=== PATIENT | female | born 1990 | race Two or more races ===

== ENCOUNTER 2019-04-29 21:08 | Emergency (ER) | payer MEDICAID, OTHER ==
[~2019-04-29] VITALS: Ht 162.6 cm; Wt 56.7 kg
[2019-04-29] MEDS ORDERED: GUAIFENESIN/CODEINE 5 ML LIQUID UDC PO ONE (21:45)
[2019-04-29] MEDS ORDERED: predniSONE 50 MG TABLET PO ONE (21:45)
[2019-04-29] MEDS ORDERED: GUAIFENESIN/CODEINE 5 ML LIQUID UDC ONE (21:47)
[2019-04-29] MEDS ORDERED: predniSONE 50 MG TABLET ONE (21:48)
--- NOTE | 2019-04-29 21:52 | NUR ---
PT ABLE TO TOLERATE PO MEDS ORDERED Patient discharged to home in stable conditon. Written and verbal after care instructions given. Patient verbalizes understanding of instructions. AMBULATORY W/ STABLE GAIT ALL BELONGINGS W/ PT
[2019-04-29 21:59] VITALS: BP 106/79
== END 2019-04-29 21:59 | disposition home or self-care (01) ==
LOC: ER 21:11
DX: J20.9 Acute bronchitis, unspecified (principal); F17.290 Nicotine dependence, other tobacco product, uncomplicated; Z71.6 Tobacco abuse counseling
CPT/HCPCS: 71045; 87400; 99284; 99406; J7512; A4663

== ENCOUNTER 2021-11-15 21:44 | Emergency (ER) | payer BC, OTHER ==
[~2021-11-15] VITALS: Ht 162.6 cm; Wt 63.5 kg
[2021-11-15] MEDS ORDERED: IV NS 1000 ML 1,000 ML IV ONE (22:00)
[2021-11-15] MEDS ORDERED: PROCHLORPERAZINE EDISYLATE 10 MG/2 ML VIAL IV ONE (22:00)
[2021-11-15] MEDS ORDERED: IV NORMAL SALINE 1000 ML BAG IV ONE (22:00)
[2021-11-15] MEDS ORDERED: PROCHLORPERAZINE EDISYLATE 10 MG/2 ML VIAL ONE (22:12)
[2021-11-15 22:13] LABS: HEMATOCRIT 39.3 % (31.2-41.9); MEAN CORPUSCULAR HEMOGLOBIN 31.3 uug (24.7-32.8); MEAN CORPUSCULAR VOLUME 88.6 fL (75.5-95.3); PLATELET COUNT (AUTO) 246 K/uL (179-408)
[2021-11-15 22:21] LABS: CREATININE 0.9 mg/dL (0.6-1.3); POTASSIUM 3.6 mmol/L (3.5-5.1)
[2021-11-15 22:36] LABS: BILIRUBIN,DIRECT 0.2 mg/dL (0.0-0.2); BILIRUBIN,TOTAL 0.7 mg/dL (0.2-1.0)
[2021-11-15 22:56] LABS: *BILIRUBIN,URIN NEGATIVE (NEGATIVE); *BLOOD, URINE NEGATIVE (NEGATIVE); *CLARITY,URINE CLEAR (CLEAR); *COLOR,URINE YELLOW (YELLOW); *KETONES,URINE 2+ (NEGATIVE); *UROBILINOGEN,URINE 0.2 E.U./dl (NORMAL); LEUKOCYTE ESTERASE ,URINE NEGATIVE (NEGATIVE); NITRITE, URINE NEGATIVE (NEGATIVE); PH,URINE 7.5 (5.0-8.0); UGLUCOSE NEGATIVE (NEGATIVE)
--- NOTE | 2021-11-15 23:28 | NUR ---
Patient states "I feel alot better now."
[2021-11-15] MEDS ORDERED: PROC10TA29 PO (23:29)
--- NOTE | 2021-11-15 23:32 | NUR ---
IV removed. Catheter intact and site benign. Pressure and 4x4 gauze applied to site. No bleeding noted.
[2021-11-15 23:36] VITALS: BP 128/90
--- NOTE | 2021-11-15 23:36 | NUR ---
Patient discharged to home in stable condition with family taking patient home. Written and verbal after care instructions given. Patient verbalizes understanding of instructions. Stressed follow up or return to ER for worsening s/s.
== END 2021-11-15 23:37 | disposition home or self-care (01) ==
LOC: ER 21:48
DX: K29.70 Gastritis, unspecified, without bleeding (principal)
CPT/HCPCS: 99284; 96374; 96361; 80076; 80048; 81003; 83690; 85025; 36415; J0780; J7040 ×2; A4663

== ENCOUNTER 2024-02-28 11:07 | Emergency (ER) | payer BC, OTHER ==
[~2024-02-28] VITALS: Ht 162.6 cm; Wt 54.4 kg
[~2024-02-28 11:07] MED LIST: PROC10TA29 PO
[2024-02-28] MEDS ORDERED: IBUPROFEN 600 MG TABLET ONE (11:31)
[2024-02-28] MEDS: IBUPROFEN 600 MG TABLET PO ONE (11:33)
[2024-02-28] MEDS ORDERED: IBUP-1955 PO (12:37)
[2024-02-28 12:53] VITALS: BP 111/77; O2SAT 97
== END 2024-02-28 12:54 | disposition home or self-care (01) ==
LOC: ER 11:07
DX: S60.122A Contusion of left index finger with damage to nail, initial encounter (principal); F17.200 Nicotine dependence, unspecified, uncomplicated; Z79.899 Other long term (current) drug therapy; Z88.7 Allergy status to serum and vaccine; W23.0XXA Caught, crushed, jammed, or pinched between moving objects, initial encounter; Y93.89 Activity, other specified; Y92.89 Other specified places as the place of occurrence of the external cause; Y99.8 Other external cause status
CPT/HCPCS: 73140; A4606; A4663